=== PATIENT | female | born 1930 | race Caucasian/White ===

== ENCOUNTER → 2016-05-28 | Outpatient (CLI) | payer OTHER, BC ==
[~2016-05-28] MED LIST: ALBUTEROL2.5 MG/0.5 INH; ALENDRONATE SOD70 MG PO; ASPIR 8181 MG PO; AUGMENTIN 875875 MG PO; CELEBREX 200 M200 MG; CELEXA40 MG; CIPROFLOXACIN500 M1 PO; COUMADIN PO; DELTASONE20 MG PO; DEMADEX20 MG PO; DETROL LA4 MG PO; EFFEXOR37.5 MG PO; FENTANYL PA25 MCG/HR; FLUCONAZOLE 10100 MG PO; FUROSEMIDE 40 M40 M1 PO; GLIPIZIDE 10 MG10 MG PO; GLUCOTROL10 MG PO; GLUMETZA500 PO; HYDROCODON-ACE1 EAC1; IRON325 PO; KEFLEX500 MG PO; LISINOPRIL20 MG PO; METOPROLOL SUCC50 MG PO; NEURONTIN 300M300 M2 PO; NORVASC 5 MG TAB5 MG PO; POTASSIUM20 PO; PRADAXA150 MG PO; PRAVACHOL20 MG PO; PROTONIX40 M1 PO; SEROQUEL 25 MG25 M1 PO; SPIRIVA INH; TAMIFLU75 MG PO; TOPROL XL50 MG PO; TRAMADOL HCL E100 MG PO; ULTRAM 50MG TAB50 MG PO; VITAMINC500 PO
--- NOTE | ~2016-05-28 | SLE ---
[facility] [place] [address] POLYSOMNOGRAPHY STUDY Name: ARIADNA UGALDE Room #: REG DAYANA MOscarHuber.#: [id number] Admission: 05/28/16 Attend Phys: Marcia Delgado MD Discharge: Date of : 34 Report #: [id number] THIS REPORT FOR: //name// CC: Marcia Molina MD The patient with history of obstructive sleep apnea, on CPAP, has been on this for 12 years, machine is failing, however. COMMENTS: Baseline portion: Total sleep time 181 minutes, sleep efficiency 76%. RESPIRATORY SUMMARY: Central apnea 3, obstructive apnea 6, hypopnea 165. Apnea-hypopnea index of 58 events per sleep hour. Left lateral 69, right lateral 44 events per sleep hour. Minimal supine sleep noted. Periodic limb movement with arousal index 6 events per sleep hour. Low oxygen saturation 81%, spending 20% of recording time less than 90%. CPAP TITRATION: Titrated at 5, 7, 9, 11 and 12 cm water pressure. She uses a Respironics Comfort Blue Gel Mask at home, however, a Respironics Bambi View small mask was used during the study. At 12 cm water pressure, the patient was seen for 100 minutes of which 20 minutes was in REM sleep. There were 29 central apneas, 25 hypopneas, apnea-hypopnea index was 34 events per sleep hour, low sat of 83%. IMPRESSION: 1. Obstructive sleep apnea/hypopnea, G47.33. 2. Complex sleep apnea with increase in central events with titration. 3. Premature ventricular contractions noted. 4. A definite CPAP setting was not established. SUGGESTIONS: 1. In addition to specific therapy, the patient should be cautioned regarding driving or operating dangerous machinery unless fully alert. The patient should be cautioned regarding the use of respiratory depressants. 2. Oral appliance or appropriate surgery may be considered with appropriate followup. 3. Usual sleep apnea suggestions recommended. 4. An auto titrating CPAP between 8 and 14 cm water pressure is initially recommended. During our study, a Respironics Bambi View small mask was used with heated humidity. 5. If signs and symptoms not improved with therapy, further evaluation is recommended. Please do not hesitate to contact me if I may be of further assistance. <ELECTRONICALLY SIGNED> By: Marcia Delgado MD 05/30/16 184 17 37 Marcia Delgado MD /nt
== END ==
LOC: SLEEPLAB 16:05
DX: G47.33 Obstructive sleep apnea (adult) (pediatric) (principal)

== ENCOUNTER → 2016-06-03 | Outpatient (CLI) | payer OTHER, BC ==
--- NOTE | ~2016-06-03 | CNG ---
[facility] [place] [address] CYTO-NONGYN REPORT PROCEDURE Name: TRAMYOLANDA Room #: REG DAYANA Canseco#: [id number] Admission: 06/03/16 Date of : 32 Discharge: Report #: [id number] Path Case #: [id number] CYTOPATHOLOGY REPORT COLLECTION DATE: 06/03/2016 RECEIVED DATE: 06/03/2016 SUBMITTING PHYS: Dr. Marcia Delgado OTHER PHYS: Dr. Shasta Molina CLINICAL HISTORY: Pleural effusion. SPECIMEN(S) RECEIVED: A.Pleural fluid * * * * * * * * * * * * FINAL DIAGNOSIS: A. Pleural fluid: - No malignant cells identified. Reactive mesothelial cells and chronic inflammatory cells are identified. PATHOLOGIST: Jennifer Bond M.D. REPORT ELECTRONICALLY SIGNED BY: Jennifer Bond M.D. DATE/TIME: 06/06/2016 15:04 * * * * * * * * * * * * GROSS PATHOLOGY: A. Pleural fluid: The specimen is submitted unfixed, labeled "Yolanda Anderson". Received by the Cytology Department is 15 mL of clear luis miguel fluid. One ThinPrep slide and a cell block were prepared. (clt 06.03.2016) [employer]PER[employer]OR [employer]): XOCHITL Kelly([facility]) INITIAL CPT CODE(S): A; 78137, 72791 Professional services performed by [facility] at [facility] [address] , [place] [address] Technical services performed by [facility] at [address] [place] [address]., [address], [place] [address]. [facility] [address] [place] [address], [facility] [address] [place] [address] PHONE: [phone] [facility] [address] [place] [address] CYTO-NONGYN REPORT PROCEDURE Name: YOLANDA ANDERSON Room #: REG DAYANA Ochoa.#: [id number] Admission: 06/03/16 Date of : 32 Discharge: Report #: [id number] Path Case #: [id number] DIRECTOR: Bud Eaton M.D. * * * END OF REPORT * * *
[2016-06-03 12:39] LABS: HEMATOCRIT 43.3 % (37.0-47.0); HEMOGLOBIN 14.6 gm/dL (12.0-15.0); MCH 32.1 pg (26.0-34.0); MCHC 33.6 % (28.0-37.0); MCV 95.4 fL (80.0-100.0); RBC 4.54 mil/uL (4.20-5.00); RDW 15.5 % (10.5-14.5); WBC 6.6 thou/uL (4.0-11.0)
[2016-06-03 12:53] LABS: CALCIUM 10.4 mg/dL (8.5-10.1); CREATININE 0.6 mg/dL (0.6-1.3); POTASSIUM 4.2 mmol/L (3.5-5.1)
[2016-06-03 13:02] LABS: INR 1.1; PROTIME 11.4 Seconds (9.3-11.4)
[2016-06-03 16:17] LABS: TOTAL VOLUME 60
[2016-06-04 14:07] LABS: BF LINING CELLS 15 % (Not Estab.); BF MACROPHAGE 4 % (Not Estab.); BF NEUTROPHILS 4 % (0-24); BF NUCLEATED CELLS 175 /mm3 (0-499); BF RBC 3000 /uL (Not Estab.); CLARITY CLOUDY (Clear); COLOR YL (())
[2016-06-04 19:08] LABS: BODY FLUID ALBUMIN 1.6 g/dL (()); BODY FLUID AMYLASE 21 U/L (()); BODY FLUID GLUCOSE 60 mg/dL (()); BODY FLUID LDH 114 IU/L (()); BODY FLUID PROTEIN 2.4 g/dL (())
== END ==
LOC: ULTRA 11:58
PROVIDERS: Internal Medicine Pulmonary Disease
DX: J90 Pleural effusion, not elsewhere classified (principal); E11.9 Type 2 diabetes mellitus without complications; N39.0 Urinary tract infection, site not specified; E16.2 Hypoglycemia, unspecified

== ENCOUNTER 2016-06-04 13:22 | Emergency (ER) | payer OTHER, BC ==
[~2016-06-04] VITALS: Ht 167.6 cm; Wt 63.5 kg
[~2016-06-04 13:22] MED LIST changes: -ALBUTEROL2.5 MG/0.5 INH; -ALENDRONATE SOD70 MG PO; -ASPIR 8181 MG PO; -AUGMENTIN 875875 MG PO; -DELTASONE20 MG PO; -DEMADEX20 MG PO; -FLUCONAZOLE 10100 MG PO; -GLIPIZIDE 10 MG10 MG PO; -KEFLEX500 MG PO; -METOPROLOL SUCC50 MG PO; -PRAVACHOL20 MG PO; -PROTONIX40 M1 PO; -SEROQUEL 25 MG25 M1 PO; -TAMIFLU75 MG PO; -TRAMADOL HCL E100 MG PO; -VITAMINC500 PO
[2016-06-04] MEDS ORDERED: DEMADEX20 MG PO (16:46)
[2016-06-04] MEDS ORDERED: FLUCONAZOLE 10100 MG PO (16:47)
[2016-06-04] MEDS ORDERED: PRAVACHOL20 MG PO (16:48)
[2016-06-04] MEDS ORDERED: ALENDRONATE SOD70 MG PO (16:48)
[2016-06-04 17:26] VITALS: BP 107/40
[2016-07-17] MEDS ORDERED: PROTONIX40 M1 PO (10:15)
[2016-07-17] MEDS ORDERED: TAMIFLU75 MG PO (10:17)
[2016-07-25] MEDS ORDERED: SEROQUEL 25 MG25 M1 PO (12:36)
== END 2016-06-04 17:27 | disposition home or self-care (01) ==
LOC: ER 13:22
DX: E11.649 Type 2 diabetes mellitus with hypoglycemia without coma (principal); Z79.84 Long term (current) use of oral hypoglycemic drugs; I10 Essential (primary) hypertension; F32.9 Major depressive disorder, single episode, unspecified; Z95.2 Presence of prosthetic heart valve; Z95.0 Presence of cardiac pacemaker; J44.9 Chronic obstructive pulmonary disease, unspecified; Z98.42 Cataract extraction status, left eye; Z98.41 Cataract extraction status, right eye; Z98.890 Other specified postprocedural states; Z88.8 Allergy status to other drugs, medicaments and biological substances; F17.210 Nicotine dependence, cigarettes, uncomplicated

== ENCOUNTER 2016-06-05 11:08 | Inpatient (IN) | payer OTHER, BC ==
[~2016-06-05] VITALS: Ht 167.6 cm; Wt 68.0 kg
--- NOTE | ~2016-06-05 | HC ---
[facility] [address] [place] [address] CONSULTATION Name: ARIADNA UGALDE Room #: 426-P ADM IN M.R.#: [id number] Admission: 06/07/16 Attend Phys: Viraj Angulo MD Discharge: Date of : 32 Report #: [id number] THIS REPORT FOR: //name// CC: Juan R Molina PRIMARY CARE PHYSICIAN: Shasta Molina M.D. REFERRAL PHYSICIAN: Juan R Hester M.D. REASON FOR REFERRAL: Pulmonary followup. HISTORY OF PRESENT ILLNESS: The patient is an 85-year-old white female who was admitted with recurrent hypoglycemia. She has a history of sleep apnea, COPD. A pulmonary consultation was requested for followup management. The patient has known sleep apnea. The patient has recently undergone a sleep study. A new CPAP machine was ordered according to the family. She is followed by Dr. Delgado. She also has a history of COPD along with lung cancer. Last Meir, she underwent thoracentesis. The results of these are still pending. From a lung standpoint, she is doing fairly well. She is yet to receive a CPAP and will use oral BiPAP for now until a CPAP device is available. In terms of her hypoglycemia, this is better. That may be related to oral hypoglycemic agents. Otherwise, the patient denies any chest pain, dyspnea or productive cough, night sweats or chills. PAST MEDICAL HISTORY: Sleep apnea, COPD, adenocarcinoma of the lung, pleural effusion status post recent thoracentesis, diabetes mellitus, bioprosthetic aortic valve replacement, gastroesophageal reflux disease, hypertension, status post permanent pacemaker placement, atrial fibrillation. ALLERGIES: CARDIZEM, which causes hives. HOME MEDICATIONS: Lists are reviewed. For COPD, she is on Spiriva, albuterol. FAMILY HISTORY: Notable for heart disease in the father. Mother at the age of 99. SOCIAL HISTORY: She has smoked about 50 pack years, quit in 2012. She currently resides at an independently living. She is . She has 3 children. [facility] [address] [place] [address] CONSULTATION Name: ARIADNA UGALDE Room #: 426-P [facility] IN M.R.#: [id number] Admission: 06/07/16 Attend Phys: Viraj Angulo MD Discharge: Date of : 32 Report #: [id number] REVIEW OF SYSTEMS: As mentioned above, otherwise 10-point system review negative. PHYSICAL EXAMINATION: GENERAL: She is awake, alert, in no apparent distress. VITAL SIGNS: Temperature is 98 degrees Fahrenheit, pulse is 76, respiratory rate is 22, blood pressure is 150/88 mmHg, saturation 95% on room air. HEENT: Normocephalic, atraumatic. NECK: Supple, without any lymphadenopathy or thyromegaly. CHEST: Breath sounds are good without any rales or wheezes. CARDIOVASCULAR: Irregularly irregular. No murmurs or gallop. ABDOMEN: Soft, nontender, no organomegaly or masses felt. GENITOURINARY: Deferred. RECTAL: Deferred. EXTREMITIES: There is no edema, cyanosis or clubbing. LABORATORY DATA: Chest x-ray shows cardiomegaly, mild interstitial infiltrates seen in the right upper lobe, increased gastric air. Recent thoracentesis yield approximately 1200 mL of clear yellowish fluid. Cytology is negative for malignant cells. A 2D echocardiogram showed normal ejection fraction, ____ function normal, right ventricle was dilated, right atrium is dilated, left atrium is dilated, a bioprosthetic aortic valve is noted. Mitral valve is mildly calcified, suggestive of jhka-bm-ytlloijy stenosis, xhapmtpj-pz-cpdjum regurgitation, pulmonary artery pressure measured 46 mmHg, pleural fluid laboratory suggests transudate. Electrolytes unremarkable. WBC 7300, hemoglobin is 12.4. IMPRESSION: 1. FIORDALIZA. She recently underwent a split night study. A new CPAP machine has been ordered. For now, I would recommend autotitrating BiPAP while in the hospital until she gets a new CPAP machine. 2. Chronic obstructive pulmonary disease, clinically compensated. 3. Remote history of tobacco use, quit in 2014. 4. Lung cancer. 5. Pleural effusion, status post thoracentesis, cytology negative. 6. Should be episodic hypoglycemia with a history of diabetes mellitus, defer management to primary care team. RECOMMENDATION: The patient is doing well from a pulmonary standpoint. We will continue bronchodilator therapy. All the titrating BiPAP as mentioned above. She will follow with Dr. Delgado. [address] [address] CONSULTATION Name: ARIADNA UGALDE Room #: 426-P ADM IN M.R.#: [id number] Admission: 06/07/16 Attend Phys: Viraj Angulo MD Discharge: Date of : 32 Report #: [id number] Thank you for this consultation. <ELECTRONICALLY SIGNED> By: Naren Lynch MD 06/07/16 1611 1655 0008 Naren Lynch MD /nt
--- NOTE | ~2016-06-05 | 2DMMODE ---
[facility] [place] [address] 2 D/M-MODE ECHOCARDIOGRAM Name: ARIDANA UGALDE Room #: 426-P [facility] IN M.R.#: [id number] Admission: 06/05/16 Attend Phys: Juan R Hester Discharge: Date of : 32 Date of Service: 06/06/16 1230 Report #: [id number] THIS REPORT FOR: //name// Transthoracic Echocardiography Ordering physician: Juan R Hester Stephanie B. Chitaia, Nikoloz physician: Dominick Pipe Production Worker: IRENE Meraz Indications/History: Atrial fibrillation, PPM, AVR. BP: 150 / HR: 75bpm Height: 66in Weight: 149.7lb 88 Study data: M-mode, complete 2D, complete spectral Doppler, and color Doppler. Location: Bedside. Routine. Image quality was adequate. 2D measurements Normal Normal LVID ED 49.7mm 36-57 IVS ED 10.4mm 6-11 LVID ES 33.1mm 23-40 LVPW ED 9.4mm 6-11 LA volume 168ml/m2 16-28 AoRoot diam 24.1mm 21-37 index ED LVOT diameter 18-23 Findings: Left ventricle: The cavity size was normal. Wall thickness was normal. Systolic function was normal. The estimated ejection fraction was in the range of 60% to 65%. Wall motion was normal. Right ventricle: The cavity size was dilated. Systolic function was normal. Right atrium: The atrium was dilated. Left atrium: The atrium was dilated. Volume index: 168ml/m2 (S). Aortic valve: A bioprosthesis was present. Doppler: There was no stenosis. No regurgitation. Peak velocity: 194.7cm/s (S). Valve area: 1.2cm2(VTI). Mean [facility] [address] [place] [address] 2 D/M-MODE ECHOCARDIOGRAM Name: LOVE,ARIADNA Room #: 426-P ADM IN Gabriela.#: [id number] Admission: 06/05/16 Attend Phys: Juan R Hester Discharge: Date of : 32 Date of Service: 06/06/16 1230 Report #: [id number] gradient: 8.5mm Hg (S). Peak gradient: 15.2mm Hg (S). Mitral valve: Moderately calcified annulus with focal echodensity noted clinical correlation suggested . Mildly thickened, mildly calcified leaflets . Doppler: The findings are consistent with mild to moderate stenosis. Moderate to severe regurgitation. Mean gradient: 7.5mm Hg (D). Tricuspid valve: Structurally normal valve. Doppler: There was no evidence for stenosis. Moderate-severe regurgitation. Regurgitant peak velocity: 279.5cm/s. Peak RV-RA gradient: 31mm Hg (S). Pulmonic valve: Structurally normal valve. Doppler: There was no evidence for stenosis. Mild regurgitation. Pericardium: There was no pericardial effusion. Aorta: Aortic root: The aortic root was normal in size. Pulmonary artery: Systolic pressure was estimated to be 46mm Hg. Diastolic function: The study is not technically sufficient to allow evaluation of LV diastolic function. Systemic veins: Inferior vena cava: The vessel was dilated; respirophasic changes in dimension were absent. Conclusions 1. Left ventricle: The cavity size was normal. Wall thickness was normal. Systolic function was normal. The estimated ejection fraction was in the range of 60% to 65%. Wall motion was normal. 2. Right ventricle: The cavity size was dilated. 3. Right atrium: The atrium was dilated. 4. Left atrium: The atrium was dilated. 5. Aortic valve: A bioprosthesis was present. 6. Mitral valve: Moderately calcified annulus with focal echodensity noted clinical correlation suggested . Mildly thickened, mildly calcified leaflets . The findings are consistent with mild to moderate stenosis. Moderate to severe regurgitation. 7. Pulmonic valve: Mild regurgitation. 8. Tricuspid valve: Moderate-severe regurgitation. 9. Pulmonary arteries: Systolic pressure was estimated to be 46mm Hg. [facility] [place] [address] [place] [address] 2 D/M-MODE ECHOCARDIOGRAM Name: ARIADNA UGALDE Room #: 426-P ADM IN M.R.#: [id number] Admission: 06/05/16 Attend Phys: Juan R Hester Discharge: Date of : 32 Date of Service: 06/06/16 1230 Report #: [id number] 10. Inferior vena cava: The vessel was dilated; respirophasic changes in dimension were absent. <ELECTRONICALLY SIGNED> By: Alexander Horne MD 06/06/16 1325 1230 24 Alexander Horne MD /camila
--- NOTE | ~2016-06-05 | H ---
[facility] [place] [address] [place] [address] HISTORY AND PHYSICAL Name: ARIADNA UGALDE Room #: 426-P ADM IN M.R.#: [id number] Admission: 06/07/16 Attend Phys: Viraj Angulo MD Discharge: Date of : 32 Report #: [id number] THIS REPORT FOR: //name// CC: Juan R Molina DATE OF ADMISSION: 06/05/2016 CHIEF COMPLAINT: Hypoglycemia. HISTORY OF PRESENT ILLNESS: The patient is an 85-year-old female who lives at the [facility] living. The patient has had falls during the last few days. Paramedics brought the patient to the Emergency Room a couple of days ago for hypoglycemia. She states that she takes glipizide, which she stopped taking couple of days ago. Yesterday, she had another hypoglycemic episode, which was again treated in the Emergency Room. She developed hypoglycemia this morning, with blood sugar in the mid 30s. The patient called primary care physician, who recommended the patient to come to the Emergency Room. The patient's lowest blood sugar today was 39. As noted, she has had falls lately. The patient hit her head, but she denies pain, and she has no neurologic deficits. In the Emergency Room, the patient was found to have urinary tract infection. She already received a dose of Rocephin. Currently, the patient feels well. She denies chest pains, shortness of breath, heart palpitations, dizziness, weakness, or other symptoms. PAST MEDICAL HISTORY: 1. Diabetes mellitus type 2. 2. History of porcine valve, details not specified. 3. Status post pacemaker placement. 4. History of paroxysmal atrial fibrillation. 5. Hypertension. 6. Chronic obstructive pulmonary disease. 7. Tobacco abuse, quit about a month ago. 8. Depression. 9. Status post right BKA, secondary to infected arthroplasty. 10. History of lung cancer. CURRENT MEDICATIONS: Amlodipine 5 mg a day, alendronate 70 mg a day, Pradaxa 150 mg b.i.d., iron sulfate 325 mg a day, fluconazole 100 mg a day, gabapentin 300 mg b.i.d., glipizide 10 mg a day, lisinopril 20 mg a day, metformin 500 mg b.i.d., Pravachol 20 mg a day, Spiriva inhaler a day, torsemide 20 mg a day, tramadol 50 mg 3 times a day as needed, and Effexor 37.5 mg a day. [address] [address] HISTORY AND PHYSICAL Name: ARIADNA UGALDE Room #: 426-P [facility] IN .R.#: [id number] Admission: 06/07/16 Attend Phys: Viraj Angulo MD Discharge: Date of : 32 Report #: [id number] FAMILY HISTORY: Reviewed and not pertinent to the patient's current condition. SOCIAL HISTORY: As noted, the patient lives by herself. She quit smoking cigarettes about a month ago. She does not drink alcohol. REVIEW OF SYSTEMS: As above in HPI section, all others negative. PHYSICAL EXAMINATION: GENERAL: The patient is an elderly female who is in no apparent distress. VITAL SIGNS: Blood pressure is 118/76, heart rate is 77, aspiration is between 16 and 22, temperature is 97.8. HEENT: Pupils are equal. Eye movements are normal. Sclerae are anicteric. NECK: Supple. Thyromegaly is not palpated. The patient has no JVD. RESPITATORY: Chest moves symmetrically with voiding. Respiratory sounds are normal. CARDIOVASCULAR: The patient has distant S1 and S2. I could not appreciate murmurs, gallops or rubs. GASTROINTESTINAL: Soft, nondistended, and nontender. Bowel sounds are present. The patient has no hepatomegaly or splenomegaly. MUSCULOSKELETAL: There is no edema, cyanosis or clubbing. The patient is status post right AKA. NEUROLOGIC: The patient is alert and oriented x 3.: Her examination is nonfocal. LABORATORY DATA: Basic metabolic profile shows slightly high potassium at 5.5. The creatinine is normal. Glucose currently is 129. AST is slightly high at 39. Liver function tests are otherwise normal. CBC with differential is unremarkable. Urinalysis is consistent with UTI. Chest x-ray shows cardiomegaly, without acute findings. ASSESSMENT AND PLAN: 1. Severe hypoglycemic episode as detailed above. Glipizide is discontinued a couple of days ago. The patient will be monitored closely. We will use sliding scale insulin based on low dose algorythm. Her glucose level is greater than 150. We are checking TSH and hemoglobin A1c. 2. Urinary tract infection. Urine is submitted for culture. Rocephin will be continued for now. 3. Status post fall, closed head injury. We are ordering CT scan of the head, although the patient has no neurologic deficits. 4. Cardiomegaly on chest x-ray, and recent shortness of breath, worsening. We will obtain echo for further evaluation. The patient recently had right-sided pleural effusion and thoracentesis few days ago. This is being worked up as an outpatient by patient's metal bed assembler. [address] [address] HISTORY AND PHYSICAL Name: ARIADNA UGALDE Room #: 426-P ADM IN M.R.#: [id number] Admission: 06/07/16 Attend Phys: Viraj Angulo MD Discharge: Date of : 32 Report #: [id number] 5. DVT prophylaxis. Unnecessary, the patient is on Pradaxa for paroxysmal atrial fibrillation. <ELECTRONICALLY SIGNED> By: Juan R Hester MD 06/08/16 2032 1439 1640 Juan R Hester MD /nt
[~2016-06-05 11:08] MED LIST changes: +ALENDRONATE SOD70 MG PO; +DEMADEX20 MG PO; +FLUCONAZOLE 10100 MG PO; +PRAVACHOL20 MG PO
[2016-06-05 11:09] VITALS: BP 134/40
[2016-06-05 11:28] LABS: HEMATOCRIT 38.5 % (37.0-47.0); HEMOGLOBIN 12.9 gm/dL (12.0-15.0); MCHC 33.5 % (28.0-37.0); MCV 95.5 fL (80.0-100.0); PLATELET COUNT 229 thou/uL (150-400); RBC 4.04 mil/uL (4.20-5.00); RDW 14.9 % (10.5-14.5); WBC 9.5 thou/uL (4.0-11.0)
[2016-06-05 11:29] LABS: MANUAL DIFF YES
[2016-06-05 11:41] LABS: URINE BILIRUBIN NEGATIVE (Negative); URINE BLOOD NEGATIVE (Negative); URINE COLOR YELLOW; URINE GLUCOSE-RANDOM* NEGATIVE (Negative); URINE KETONES TRACE (Negative); URINE LEUKOCYTES-REFLEX 1+ (Negative); URINE PROTEIN (DIPSTICK) 1+ (Negative); URINE SPECIFIC GRAVITY >= 1.030 (1.003-1.035)
[2016-06-05 11:43] LABS: ABSOLUTE NEUTROPHILS 8.3 thou/uL (1.4-8.2); TOTAL CELL COUNT 100
[2016-06-05 11:44] LABS: CALCIUM 10.1 mg/dL (8.5-10.1); POIKILOCYTOSIS SLIGHT; POTASSIUM 5.5 mmol/L (3.5-5.1)
[2016-06-05 11:48] LABS: CASTS None Seen /LPF (None Seen); SQUAMOUS 0-3 Few /LPF (0-3); URINE RBC None Seen /HPF (0-2); URINE WBC-REFLEX 0-5 Rare /HPF (0-5)
[2016-06-05 11:49] LABS: AMORPHOUS URATES Few /LPF (None Seen)
[2016-06-05 13:45] VITALS: BP 118/76
[2016-06-05 14:00] VITALS: BP 105/76
[2016-06-05 16:05] VITALS: BP 128/94
[2016-06-05 20:00] VITALS: BP 123/59
[2016-06-06 04:00] VITALS: BP 118/57
[2016-06-06 05:44] LABS: HEMATOCRIT 36.7 % (37.0-47.0); HEMOGLOBIN 12.4 gm/dL (12.0-15.0); MCH 31.9 pg (26.0-34.0); MCHC 33.8 % (28.0-37.0); MCV 94.4 fL (80.0-100.0); PLATELET COUNT 211 thou/uL (150-400); RBC 3.89 mil/uL (4.20-5.00); RDW 15.2 % (10.5-14.5); WBC 7.3 thou/uL (4.0-11.0)
[2016-06-06 05:46] LABS: MANUAL DIFF YES
[2016-06-06 05:51] LABS: CALCIUM 10.1 mg/dL (8.5-10.1); CREATININE 0.7 mg/dL (0.6-1.3)
[2016-06-06 05:53] LABS: POTASSIUM 4.5 mmol/L (3.5-5.1)
[2016-06-06 07:43] VITALS: BP 150/88
[2016-06-06 07:44] LABS: ANISOCYTOSIS 1+; OVALOCYTES 1+; TOTAL CELL COUNT 100
[2016-06-06 15:28] VITALS: BP 91/42
[2016-06-06 19:30] VITALS: BP 138/53
[2016-06-07 04:30] VITALS: BP 125/57
[2016-06-07 06:33] LABS: ABSOLUTE NEUTROPHILS 4.6 thou/uL (1.4-8.2); BASOPHILS 0.7 % (0.0-2.0); EOSINOPHILS 1.8 % (0.0-3.0); HEMATOCRIT 38.1 % (37.0-47.0); HEMOGLOBIN 12.8 gm/dL (12.0-15.0); LYMPHOCYTES 11.6 % (24.0-44.0); MCHC 33.6 % (28.0-37.0); MCV 95.3 fL (80.0-100.0); MONOCYTES 8.3 % (1.0-8.0); PLATELET COUNT 218 thou/uL (150-400); POLYS 77.6 % (36.0-66.0); RDW 15.2 % (10.5-14.5); WBC 5.9 thou/uL (4.0-11.0)
[2016-06-07 06:36] LABS: MANUAL DIFF NO
[2016-06-07 06:52] LABS: CALCIUM 10.4 mg/dL (8.5-10.1); CREATININE 0.7 mg/dL (0.6-1.3); POTASSIUM 4.5 mmol/L (3.5-5.1)
[2016-06-07 08:38] VITALS: BP 155/66
[2016-06-07 15:37] VITALS: BP 158/59
[2016-06-07 20:00] VITALS: BP 97/59
[2016-06-08 04:30] VITALS: BP 127/53
[2016-06-08 07:59] VITALS: BP 150/57
[2016-06-08 17:47] VITALS: BP 140/55
[2016-06-08 19:53] VITALS: BP 120/54
[2016-06-09 03:40] VITALS: BP 126/56
[2016-06-09 08:46] VITALS: BP 123/71
[2016-06-09 16:08] VITALS: BP 130/43
[2016-06-09 21:20] VITALS: BP 132/43
[2016-06-10 04:40] LABS: ABSOLUTE NEUTROPHILS 4.4 thou/uL (1.4-8.2); BASOPHILS 1.3 % (0.0-2.0); EOSINOPHILS 2.2 % (0.0-3.0); HEMATOCRIT 36.8 % (37.0-47.0); HEMOGLOBIN 12.4 gm/dL (12.0-15.0); LYMPHOCYTES 13.4 % (24.0-44.0); MCH 31.9 pg (26.0-34.0); MCHC 33.7 % (28.0-37.0); MCV 94.6 fL (80.0-100.0); MONOCYTES 10.5 % (1.0-8.0); PLATELET COUNT 211 thou/uL (150-400); POLYS 72.6 % (36.0-66.0); RBC 3.89 mil/uL (4.20-5.00); RDW 14.4 % (10.5-14.5); WBC 6.1 thou/uL (4.0-11.0)
[2016-06-10 04:49] LABS: MANUAL DIFF NO
[2016-06-10 04:58] LABS: CALCIUM 9.6 mg/dL (8.5-10.1); CREATININE 0.7 mg/dL (0.6-1.3); POTASSIUM 4.2 mmol/L (3.5-5.1)
[2016-06-10 05:50] VITALS: BP 125/48
[2016-06-10 08:03] VITALS: BP 142/58
[2016-06-10] MEDS ORDERED: KEFLEX500 MG PO (13:49)
[2016-06-10] MEDS ORDERED: GLUCOTROL10 MG PO (13:52)
[2016-06-10] MEDS ORDERED: ALBUTEROL2.5 MG/0.5 INH (13:52)
[2016-07-17] MEDS ORDERED: PROTONIX40 M1 PO (10:15)
[2016-07-17] MEDS ORDERED: TAMIFLU75 MG PO (10:17)
[2016-07-25] MEDS ORDERED: SEROQUEL 25 MG25 M1 PO (12:36)
== END 2016-06-10 17:10 | DRG 872 ==
LOC: ER 11:08 → EROBS 12:45 → 4E 14:06
PROVIDERS: Emergency Medicine; Internal Medicine; Internal Medicine Endocrinology, Diabetes & Metabolism
DX: A41.9 Sepsis, unspecified organism (principal); N39.0 Urinary tract infection, site not specified; J90 Pleural effusion, not elsewhere classified; C34.90 Malignant neoplasm of unspecified part of unspecified bronchus or lung; E11.649 Type 2 diabetes mellitus with hypoglycemia without coma; K21.9 Gastro-esophageal reflux disease without esophagitis; J44.9 Chronic obstructive pulmonary disease, unspecified; G47.33 Obstructive sleep apnea (adult) (pediatric); I48.0 Paroxysmal atrial fibrillation; B96.20 Unspecified Escherichia coli [E. coli] as the cause of diseases classified elsewhere; I10 Essential (primary) hypertension; F32.9 Major depressive disorder, single episode, unspecified; Z96.651 Presence of right artificial knee joint; Z88.8 Allergy status to other drugs, medicaments and biological substances; Z98.49 Cataract extraction status, unspecified eye; Z79.899 Other long term (current) drug therapy; Z95.2 Presence of prosthetic heart valve; Z95.0 Presence of cardiac pacemaker; Z82.49 Family history of ischemic heart disease and other diseases of the circulatory system; Z87.891 Personal history of nicotine dependence; Z91.81 History of falling

== ENCOUNTER 2016-08-01 16:14 | Inpatient (IN) | payer OTHER, BC ==
[~2016-08-01] VITALS: Ht 172.7 cm; Wt 72.6 kg
--- NOTE | ~2016-08-01 | EEG ---
[facility] [place] [address] [place] [address] ELECTROENCEPHALOGRAM Name: ARIADNA UGALDE Room #: 451-P ADM IN M.R.#: [id number] Admission: 08/01/16 Attend Phys: Kevin Vasquez DO Discharge: Date of : 32 Report #: [id number] THIS REPORT FOR: //name// CC: Kevin Vasquez Veronica Sabih DATE OF SERVICE: 08/03/2016 This patient is being evaluated for altered mental status. EEG was done by placing the electrodes by standard 10-20 system of electrode placement. Both referential and sequential montages were used for recording. Background activity in this patient's EEG is only about 5-6 Hz and 25 microvolt. The patient is sedated. Photic stimulation is unremarkable. IMPRESSION: This is an abnormal EEG because it is very disorganized and poorly formed. That is a nonspecific abnormality, which can occur with encephalopathy, effect of psychotropic medication, dementia, etc. Clinical correlation is recommended. Thank you very much for this referral. <ELECTRONICALLY SIGNED> By: Naseem Capone MD 08/05/16 1933 0848 Naseem Capone MD /nt
--- NOTE | ~2016-08-01 | HC ---
[facility] [place] [address] [place] [address] CONSULTATION Name: ARIADNA UGALDE Room #: 451-P ADM IN M.R.#: [id number] Admission: 08/01/16 Attend Phys: Kevin Vasquez DO Discharge: Date of : 32 Report #: [id number] THIS REPORT FOR: //name// CC: Kevin Montes De Oca HISTORY OF PRESENT ILLNESS: The patient is an 85-year-old woman with a recent prolonged hospitalization following a nonsyncopal fall with hip fracture in the leg that had been previously amputated. Nonsurgical therapy was recommended. She has a history of remote bioprosthetic aortic valve replacement, chronic diastolic heart failure related to significant mitral insufficiency, COPD, and recurrent anemia. She now presents with behavioral changes. She was admitted on telemetry and had a several seconds of a wide complexes tachycardia at 3:30 a.m., this was a clinically asymptomatic rhythm disturbance. I was asked to see her in this regard. She is currently awake and arousable, although disoriented, a sitter is in her room. No recent history of chest heaviness or pressure. No history of near syncope or syncope. ALLERGIES: To DILTIAZEM. MEDICATIONS: Her medicines include pravastatin 20 mg daily, lisinopril 20 mg daily, iron 3 times a day, metformin 500 mg twice daily, Pradaxa 150 mg twice daily, amlodipine 5 mg twice daily, Detrol LA, torsemide 10 mg daily, Protonix 40 mg twice daily, glipizide 10 mg daily, and tramadol. PAST MEDICAL HISTORY: Medical records have been reviewed and include history of prior biventricular pacer, aortic valve replacement, hypertension, right frdbg-guw-psdr amputation, sleep apnea, permanent atrial fibrillation, pelvis fracture in April 2011, diabetes. An echocardiogram in late May of this year demonstrated normal ejection fraction, aortic bioprosthesis that was functioning normally, klnl-zs-uzsynmbl mitral stenosis and qzndzhii-zk-wahapt mitral insufficiency. No history of coronary artery disease. At the time of her aortic valve replacement in 2008, she underwent [place] ablation. SOCIAL HISTORY: Former smoker. 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 FAMILY HISTORY: Noncontributory. REVIEW OF SYSTEMS: All systems negative except as that noted above. PHYSICAL EXAMINATION: GENERAL: Reveals a pleasant elderly woman who is alert and arousable, although disoriented. VITAL SIGNS: Blood pressure is 140/50, heart rate is 77 and regular, she is afebrile, 5 feet 8 inches tall, and 160 pounds. HEENT: There are neither xanthelasma, subcutaneous xanthomata, oral mucosal or digital cyanosis, or kyphoscoliosis present. [facility] [address] [place] [address] CONSULTATION Name: ARIADNA UGALDE Room #: 451-P ADM IN M.R.#: [id number] Admission: 08/01/16 Attend Phys: Kevin Vasquez DO Discharge: Date of : 32 Report #: [id number] CHEST: Reveals diminished breath sounds at both bases, scattered wheezing. CARDIAC: Reveals a regular rate and rhythm with normal S1 and paradoxically split second heart sound. ABDOMEN: Soft and nontender. EXTREMITIES: Without edema, hccya-dam-wqxd amputation is noted. EKG, ventricular pacing. LABORATORY DATA: Sodium 142, potassium 4.8, creatinine 0.9. White count 10.1, hemoglobin 9.6, hematocrit 30, and platelet count 258. IMPRESSION: 1. Wide complex tachycardia, nonsustained and asymptomatic. 2. Recent nonsyncopal fall with hip fracture. 3. Permanent atrial fibrillation with prior pacemaker. 4. Chronic diastolic heart failure; significant mitral valve disease. 5. Remote aortic bioprosthetic valve replacement. 6. Diabetes. 7. Chronic obstructive pulmonary disease. 8. Anemia. 9. Hypercoagulable condition. RECOMMENDATIONS: 1. Gentle diuretic therapy. 2. Interrogate pacemaker for hopefully identification of whether this was a ventricular or supraventricular rhythm. 3. Resumption of beta blockade in the absence of sustained tachycardia or symptoms. Conservative approach was recommended. <ELECTRONICALLY SIGNED> By: Anthony Leung MD, FACC 08/03/16 0939 0903 1353 Anthony Leung MD, FACC /nt
--- NOTE | ~2016-08-01 | HC ---
[facility] [place] [address] CONSULTATION Name: ARIADNA UGALDE Room #: 451-P ADM IN M.R.#: [id number] Admission: 08/01/16 Attend Phys: Kevin Vasquez DO Discharge: Date of : 32 Report #: [id number] THIS REPORT FOR: //name// CC: Kevin Vasquez Veronica Sabih DATE OF SERVICE: 08/03/2016 IDENTIFICATION: Psychiatric consultation is requested for confusion. HISTORY OF PRESENT ILLNESS: The patient is an 85-year-old retired female with no reported underlying past psychiatric history of depression, israel, psychosis or substance abuse. She does have a history of numerous micro infarcts, raising concern for possible underlying vascular dementia. However, at baseline, family reports that patient is independent and able to play bridge. The patient has had worsening confusion over the last several days, she has been restless and agitated. She has been quite disoriented and the agitation has escalated to the point that she has required as needed Haldol. Mgoaqonq-eu-cra reports that the patient was given Xanax at her most recent facility and the wsudxgpr-qt-jyx believes this contributed to patient's altered mental status. Benzodiazepines have been discontinued. The patient's tramadol has been discontinued as well. Nursing reports no benefit from the Haldol and in fact believes that perhaps it has caused worsening of agitation. ALLERGIES: DILTIAZEM. MEDICATIONS: Reviewed and include Haldol intramuscular as needed. PAST MEDICAL HISTORY: History of stroke, hypertension, above the knee amputation, obstructive sleep apnea, atrial fibrillation, diabetes, congestive heart failure. FAMILY HISTORY: Noncontributory. SOCIAL HISTORY: Past history of smoking cigarettes. 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 MENTAL STATUS EXAMINATION: Lethargic, does not open her eyes. Speech unintelligible, appears restless, did not answer questions about suicidal or homicidal ideation. Poor attention and concentration. Poor short term memory, disoriented. Insight and judgment are currently poor. DIAGNOSIS: Delirium. [facility] [address] [place] [address] CONSULTATION Name: ARIADNA UGALDE Room #: 451-P [facility] IN M.R.#: [id number] Admission: 08/01/16 Attend Phys: Kevin Vasquez DO Discharge: Date of : 32 Report #: [id number] PLAN: I agree with avoiding benzodiazepines and limiting opioid medications, antipsychotics or treatment of choice in this case. Nursing denies any benefit from the Haldol and so we will discontinue that in favor of Geodon to be given as needed. For less severe agitation, we can try oral doses of Seroquel. I discussed the treatment plan with the patient's jznuwdun-yx-jta and answered questions about patient's diagnosis and prognosis. I will continue to follow along. Thank you for this consultation. Please contact me with any urgent questions or concerns. By: [id number] Magy Bowen MD /nt
--- NOTE | ~2016-08-01 | HC ---
[facility] [place] [address] CONSULTATION Name: ARIADNA UGALDE Room #: 451-P ADM IN M.R.#: [id number] Admission: 08/01/16 Attend Phys: Kevin Vasquez DO Discharge: Date of : 32 Report #: [id number] THIS REPORT FOR: //name// CC: Kevin Harpih PRIMARY PHYSICIAN: DO Pedro REASON FOR REFERRAL: Respiratory insufficiency. HISTORY OF PRESENT ILLNESS: The patient is an 85-year-old white female, who was brought to the Emergency Room with altered mental status. A pulmonary consultation was requested regarding dyspnea and hypoxia. The patient was just hospitalized at [facility] 2 weeks ago for an apparent falls sustaining a right hip fracture. Surgery was not performed, but rather medical treatment was recommended. The patient also has COPD, history of lung cancer. According to family, the patient was well 2 days ago when she was found to have altered mental status, not recognizing family members. She was felt to have dysarthria, continues agitated. For that reason, she was brought to the Emergency Room. Neurology has been consulted. CT head was ____. MRI has been ordered. Currently, she appears mildly dyspneic. She is resting without any obvious distress. She is followed longitudinally in our office by Dr. Delgado for sleep apnea. She has CPAP at home. PAST MEDICAL HISTORY: As mentioned above, COPD, adenocarcinoma of the lung, history of pleural effusion, undergone thoracentesis in the past, FIORDALIZA on CPAP, bioprosthetic aortic valve replacement, hypertension, status post permanent pacemaker placement, atrial fibrillation, gastroesophageal reflux disease, recent fall with right hip fracture, depression, diabetes mellitus type 2. ALLERGIES: CARDIZEM. HOME MEDICATIONS: Reviewed in the medication list. PAST SURGICAL HISTORY: Right knee replacement with subsequent staph infection involving the right knee, right pelvis fracture in 2010, bilateral cataract surgery, tonsillectomy, right AKA. HOME MEDICATIONS: Include DuoNeb q.i.d., Pravachol, alendronate, Zestril, iron supplements, Glumetza, Pradaxa, Effexor, Ultram, Spiriva, Norvasc, Detrol, Demadex, Protonix, Glucotrol, vitamin C and tramadol. [address] [address] CONSULTATION Name: ARIADNA UGALDE Room #: 451-P ADM IN M.R.#: [id number] Admission: 08/01/16 Attend Phys: Kevin Vasquez DO Discharge: Date of : 32 Report #: [id number] FAMILY HISTORY: Remarkable for heart disease in the father. Mother at the age of 99. SOCIAL HISTORY: The patient has smoked up to 2012 after having smoking more than 50 years. Prior to last admission, she had been living independently. She is . She has 3 children, who lives in town. REVIEW OF SYSTEMS: Deferred. PHYSICAL EXAMINATION: GENERAL: This patient is ____ provide an adequate history. VITAL SIGNS: Temperature is 98 degrees Fahrenheit, pulse is 77, respiratory rate is 21, blood pressure 140/50 mmHg, saturation is 90% on supplemental O2. HEENT: Normocephalic, atraumatic. NECK: Supple, without lymphadenopathy or thyromegaly. CHEST: Breath sounds are decreased bilaterally. Few scattered crackles in the bases up to poor effort. No wheezes. CARDIOVASCULAR: Normal S1, S2. No murmurs or gallop. There is no JVD. There is no carotid bruit. Pulses are 2+/4+ bilaterally. ABDOMEN: Soft, nontender, no organomegaly or masses felt. EXTREMITIES: No edema, cyanosis or clubbing. Is also remarkable for right AKA. LABORATORY DATA: CT head again was remarkable for atrophic changes, development of cortical and subcortical low density in the right posterior insula suggesting acute or subacute infarct. X-ray of the right hip shows comminuted acute proximal femoral intertrochanteric fracture with virus deformity. Electrolytes are normal. Liver function tests are unremarkable. WBC 10,000, hemoglobin is 9.6, platelets are normal, no evidence of bandemia. Albumin is 3.0. Chest x-ray shows increased in pleural effusion, right lower lobe atelectasis, possible infiltrates. IMPRESSION: 1. Acute mental status change, perhaps likely related to acute or subacute infarct by CT head. Neurology has been consulted along with MRI. 2. Dyspnea in this 85-year-old white female. She has a history of chronic obstructive pulmonary disease along with obstructive sleep apnea. Both of these entities are likely contributing. Chest x-ray also suggest slight increase in effusion along with possible infiltrates. Need to consider pneumonia. 3. Chronic obstructive pulmonary disease, severity unknown. 4. Obstructive sleep apnea on CPAP. 5. Lung cancer with a right pleural effusion. Cytology in the past has been negative. Chest x-ray shows slightly increased in the pleural effusion along [facility] [address] [place] [address] CONSULTATION Name: ARIADNA UGALDE Room #: 451-P ADM IN M.R.#: [id number] Admission: 08/01/16 Attend Phys: Kevin Vasquez DO Discharge: Date of : 32 Report #: [id number] with possible infiltrates. We need to consider pneumonia including possible aspiration. IMPRESSION: Bioprosthetic aortic valve replacement. RECOMMENDATIONS. We will continue bronchodilators, wean O2 saturation 90-92%. We will followup chest x-ray. If the pleural effusion traumatically increases, repeat thoracentesis will be considered. For now, would recommend broad-spectrum antibiotics to cover for possible aspiration pneumonia. We will await input from neurology regarding possible acute or subacute CVA. DVT and GI prophylaxis has been addressed. Thank you for the consultation. <ELECTRONICALLY SIGNED> By: Naren Lynch MD 08/04/16 1801 [id number] Nraen Lynch MD /nt
--- NOTE | ~2016-08-01 | EKG ---
[place] [address] [facility] [place] [address] ELECTROCARDIOGRAM REPORT Name: ARIADNA UGALDE Room #: 451-P ADM IN M.R.#: [id number] Admission: 08/01/16 Attend Phys: Kevin Vasquez DO Discharge: Date of : 32 Report #: [id number] THIS REPORT FOR: //name// [facility] ED Test Date: 2016-08-01 Test Time: 16:47:06 Pat Name: ARIADNA UGALDE Department: Room: 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 SINGH : 1930 Requested By: Dax Alfaro Order Number: [id number] MD: Anthony Leung Measurements Intervals [place] Rate: 79 P: 77 RI: 337 QRS: -43 QRSD: 162 T: 133 QT: 444 QTc: 510 Interpretive Statements Ventricular-paced complexes No further analysis attempted due to paced rhythm Compared to ECG 07/17/2016 10:02:54 No significant changes Electronically Signed On 08-03-2016 8:59:48 CDT by Anthony Leung [email or web address] <ELECTRONICALLY SIGNED> By: Anthony Leung MD, [facility] 08/03/16 0859 1647 164 Anthony Leung MD, [facility] /EPI
--- NOTE | ~2016-08-01 | HC ---
[facility] [place] [address] CONSULTATION Name: ARIADNA UGALDE Room #: 451-P [facility] IN M.R.#: [id number] Admission: 08/01/16 Attend Phys: Kevin Vasquez, DO Discharge: 08/11/16 Date of : 32 Report #: [id number] THIS REPORT FOR: //name// CC: Kevin Sellersu Sabih HISTORY OF PRESENT ILLNESS: This is an 85-year-old white female who recently had fallen out of bed, sustained a nondisplaced intertrochanteric fracture of the right femur. 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 Orthopedics saw her and with the intertrochanteric fracture, the plan was to do nonoperative treatment, nonweightbearing for 6-12 weeks. She was discharged from [facility] staying from 07/17 through 08/04/2016. She was at a nursing facility and unfortunately had more and more confusion and ended up being readmitted to [facility] on 08/01/2016. She was noted to have an encephalopathy with aspiration pneumonia, hypoxemic respiratory failure, paroxysmal atrial fibrillation. She actually required are 1:1 sister initially, which was stopped on August 05. MRI showed no acute changes, only some remote infarcts posterior right frontal and left parietal. She has had some hypokalemia with electrolyte abnormalities being corrected. We are seeing her in rehabilitation medicine consultation. PAST MEDICAL HISTORY: Includes prior bilateral total knee replacements with right becoming infected with subsequent right above knee amputation approximately 5 years ago, history of diabetes mellitus type 2, porcine heart valve, pacemaker placed, atrial fibrillation, hypertension, depression, COPD, obstructive sleep apnea. MEDICATIONS: Please see the full medication listing. HABITS: Former tobacco smoker. No history of alcohol use. REVIEW OF SYSTEMS: Unable to be obtained because of her mental status. SOCIAL HISTORY: She had been living in an assisted living facility at a wheelchair level. Most recently was at a [facility] facility, [facility]. PHYSICAL EXAMINATION: GENERAL: An 85-year-old white female lying in bed. She has nasal prong O2 in place, 2 liters. NEUROLOGIC: She is confused. She could not tell me the name of the place. She was pleasant, would attempt to follow some basic 1 step commands after a definite latency. EOMs appear to be full. Functional range of motion of both upper extremities with strength grade 3+/5. DTRs are trace to 1. EXTREMITIES: She has the right above knee amputation, which is well healed. Left lower extremity, no focal calf swelling. It was difficult to assess [address] [address] CONSULTATION Name: ARIADNA UGALDE Room #: 451-P [facility] IN M.R.#: [id number] Admission: 08/01/16 Attend Phys: Kevin Vasquez, Discharge: 08/11/16 Date of : 32 Report #: [id number] strength with her cognition. She is probably at least antigravity, but again was difficult to assess. Functionally, she has been max assist for attempted basic mobility. ASSESSMENT: An 85-year-old white female with the following problem list: 1. Prior right above knee amputation, complicated by a recent nondisplaced intertrochanteric right femur fracture being handled nonoperatively with nonweightbearing. 2. Encephalopathy. 3. Hypoxemic respiratory failure. 4. Aspiration pneumonia. 5. Paroxysmal atrial fibrillation. 6. Chronic obstructive pulmonary disease. 7. Hypertension. 8. History of esophageal ulcers. 9. Obstructive sleep apnea. PLAN: Therapies are continuing to work with her, although her tolerance is quite limited overall with her encephalopathy and her significant debilitation. At this point, she does not meet criteria for an acute in-hospital inpatient rehabilitation stay, but we will continue to follow. Note that plans are underway for her to return back to the penitentiary facility as she further medically stabilizes. I would agree with this approach. Thank you for asking us to assist in this patient's care. <ELECTRONICALLY SIGNED> By: Xiang Oviedo MD 08/12/16 1539 1606 1757 Xiang Oviedo MD /nt
[~2016-08-01 16:14] MED LIST changes: +ALBUTEROL2.5 MG/0.5 INH; +KEFLEX500 MG PO; +PROTONIX40 M1 PO; +SEROQUEL 25 MG25 M1 PO; +TAMIFLU75 MG PO
[2016-08-01 16:22] VITALS: BP 126/94
[2016-08-01 16:58] LABS: HEMATOCRIT 28.6 % (37.0-47.0); HEMOGLOBIN 9.3 gm/dL (12.0-15.0); MANUAL DIFF YES; MCH 30.3 pg (26.0-34.0); MCHC 32.6 g/dL (28.0-37.0); PLATELET COUNT 243 thou/uL (150-400); RBC 3.07 mil/uL (4.20-5.00); RDW 16.1 % (10.5-14.5); WBC 8.6 thou/uL (4.0-11.0)
[2016-08-01] MEDS ORDERED: GLIPIZIDE 10 MG10 MG PO (17:09)
[2016-08-01] MEDS ORDERED: VITAMINC500 PO (17:13)
[2016-08-01] MEDS ORDERED: TRAMADOL HCL E100 MG PO (17:17)
[2016-08-01 17:28] LABS: CALCIUM 9.7 mg/dL (8.5-10.1); POTASSIUM 4.4 mmol/L (3.5-5.1)
[2016-08-01 17:35] LABS: TOTAL BILIRUBIN 0.5 mg/dL (<0.1-1.0); TOTAL PROTEIN 6.5 g/dL (6.4-8.2); TROPONIN-I 0.04 ng/mL (<0.04-0.07)
[2016-08-01 17:42] LABS: ABSOLUTE NEUTROPHILS 8.2 thou/uL (1.4-8.2); ANISOCYTOSIS 1+; TOTAL CELL COUNT 100
[2016-08-01 18:15] LABS: URINE BILIRUBIN NEGATIVE (Negative); URINE BLOOD NEGATIVE (Negative); URINE COLOR YELLOW; URINE GLUCOSE-RANDOM* NEGATIVE (Negative); URINE KETONES NEGATIVE (Negative); URINE NITRITE NEGATIVE (Negative); URINE PROTEIN (DIPSTICK) NEGATIVE (Negative); URINE UROBILINOGEN 0.2 E.U./dl (0.2-1.0)
[2016-08-01 19:06] VITALS: BP 148/55
[2016-08-01] MEDS ORDERED: NEURONTIN 300M300 M2 PO (19:13)
[2016-08-01 19:32] VITALS: BP 140/48
[2016-08-01 23:24] VITALS: BP 114/65
[2016-08-02 03:50] VITALS: BP 143/52
[2016-08-02 05:38] LABS: HEMATOCRIT 30.2 % (37.0-47.0); HEMOGLOBIN 9.6 gm/dL (12.0-15.0); MCH 29.8 pg (26.0-34.0); MCHC 31.9 g/dL (28.0-37.0); MCV 93.4 fL (80.0-100.0); PLATELET COUNT 258 thou/uL (150-400); RBC 3.24 mil/uL (4.20-5.00); RDW 16.2 % (10.5-14.5); WBC 10.1 thou/uL (4.0-11.0)
[2016-08-02 05:46] LABS: MANUAL DIFF YES
[2016-08-02 05:47] LABS: CALCIUM 9.8 mg/dL (8.5-10.1); CREATININE 0.9 mg/dL (0.6-1.3); POTASSIUM 4.8 mmol/L (3.5-5.1)
[2016-08-02 05:55] LABS: TROPONIN-I < 0.04 ng/mL (<0.04-0.07)
[2016-08-02 07:13] LABS: TOTAL CELL COUNT 100
[2016-08-02 07:14] LABS: ABSOLUTE NEUTROPHILS 8.9 thou/uL (1.4-8.2); ANISOCYTOSIS 1+
[2016-08-02 08:00] VITALS: BP 140/49
[2016-08-02 12:00] VITALS: BP 148/56; BP 148/86
[2016-08-02 13:12] LABS: CHOLESTEROL 130 mg/dL (<200); HDL CHOLESTEROL 44 mg/dL (>40); LDL CHOLESTEROL 73 mg/dL (<100); TRIGLYCERIDE 66 mg/dL (<150); VLDL 13 mg/dL (<40)
[2016-08-02 16:00] VITALS: BP 126/50
[2016-08-02 20:10] VITALS: BP 109/74
[2016-08-02 23:47] VITALS: BP 153/42
[2016-08-03 04:07] VITALS: BP 135/56
[2016-08-03 05:32] LABS: HEMATOCRIT 31.2 % (37.0-47.0); MCH 29.9 pg (26.0-34.0); MCHC 32.1 g/dL (28.0-37.0); MCV 93.4 fL (80.0-100.0); PLATELET COUNT 272 thou/uL (150-400); RBC 3.34 mil/uL (4.20-5.00); RDW 16.5 % (10.5-14.5); WBC 11.6 thou/uL (4.0-11.0)
[2016-08-03 05:45] LABS: CALCIUM 9.5 mg/dL (8.5-10.1); CREATININE 1.3 mg/dL (0.6-1.3); POTASSIUM 4.8 mmol/L (3.5-5.1)
[2016-08-03 05:48] LABS: MANUAL DIFF YES
[2016-08-03 07:09] LABS: ABSOLUTE NEUTROPHILS 10.9 thou/uL (1.4-8.2); METAMYELOCYTES 1 %; NUCLEATED RBCS 1 /100WBC; OVALOCYTES 1+; POLYCHROMASIA OCCASIONAL; TOTAL CELL COUNT 100
[2016-08-03 07:10] LABS: ANISOCYTOSIS 1+
[2016-08-03 08:04] VITALS: BP 145/68
[2016-08-03 10:36] VITALS: BP 145/68
[2016-08-03 11:34] VITALS: BP 136/51
[2016-08-03 13:43] LABS: ABG SAMPLE TYPE ARTERIAL; BE(vivo) -2.6 mmol/L (-2 to +3); O2(CT) 14.2 mL/dL (15.0-23.0); O2Hb 93.4 % (92.0-98.0); PCO2 32.4 mmHg (35.0-45.0); PO2 72.2 mmHg (80.0-100.0); STICK SITE R.RADIAL; sO2 95.1 % (92.0-98.0)
[2016-08-03 17:09] VITALS: BP 124/53
[2016-08-03 19:16] VITALS: BP 133/64
[2016-08-04 01:09] LABS: GLYCOHEMOGLOBIN (HGB A1C) 6.1 % (4.8-5.6)
[2016-08-04 04:00] VITALS: BP 153/59
[2016-08-04 05:18] LABS: HEMATOCRIT 30.8 % (37.0-47.0); HEMOGLOBIN 9.9 gm/dL (12.0-15.0); MCH 29.7 pg (26.0-34.0); MCV 92.6 fL (80.0-100.0); PLATELET COUNT 261 thou/uL (150-400); RBC 3.33 mil/uL (4.20-5.00); RDW 16.3 % (10.5-14.5); WBC 10.3 thou/uL (4.0-11.0)
[2016-08-04 05:28] LABS: MANUAL DIFF YES
[2016-08-04 05:47] LABS: CALCIUM 8.8 mg/dL (8.5-10.1); CREATININE 1.3 mg/dL (0.6-1.3); POTASSIUM 4.3 mmol/L (3.5-5.1)
[2016-08-04 08:14] VITALS: BP 143/56
[2016-08-04 08:21] LABS: ANISOCYTOSIS 1+; OVALOCYTES 1+; POLYCHROMASIA OCCASIONAL; TOTAL CELL COUNT 100
[2016-08-04 12:00] VITALS: BP 123/42
[2016-08-04 17:51] VITALS: BP 141/88
[2016-08-04 17:55] LABS: URINE BILIRUBIN NEGATIVE (Negative); URINE BLOOD 3+ (Negative); URINE COLOR RED; URINE GLUCOSE-RANDOM* NEGATIVE (Negative); URINE KETONES NEGATIVE (Negative); URINE NITRITE NEGATIVE (Negative); URINE PROTEIN (DIPSTICK) 2+ (Negative); URINE UROBILINOGEN 0.2 E.U./dl (0.2-1.0)
[2016-08-04 17:59] LABS: BACTERIA 1-9 Few /HPF (None Seen); CASTS None Seen /LPF (None Seen); CRYSTALS None Seen /LPF (None Seen); SQUAMOUS 4-10 Moderate /LPF (0-3); URINE RBC >20 Many /HPF (0-2); URINE WBC None Seen /HPF (0-5)
[2016-08-04 19:14] VITALS: BP 157/58
[2016-08-05 03:00] VITALS: BP 167/70
[2016-08-05 05:38] LABS: HEMATOCRIT 34.2 % (37.0-47.0); HEMOGLOBIN 10.8 gm/dL (12.0-15.0); MCH 29.5 pg (26.0-34.0); MCHC 31.6 g/dL (28.0-37.0); MCV 93.5 fL (80.0-100.0); PLATELET COUNT 279 thou/uL (150-400); RBC 3.66 mil/uL (4.20-5.00); RDW 16.8 % (10.5-14.5); WBC 10.4 thou/uL (4.0-11.0)
[2016-08-05 05:49] LABS: MANUAL DIFF YES
[2016-08-05 05:58] LABS: CALCIUM 9.1 mg/dL (8.5-10.1); CREATININE 1.3 mg/dL (0.6-1.3); POTASSIUM 4.2 mmol/L (3.5-5.1)
[2016-08-05 06:51] LABS: ABSOLUTE NEUTROPHILS 8.9 thou/uL (1.4-8.2); ANISOCYTOSIS 1+; TOTAL CELL COUNT 100
[2016-08-05 07:47] VITALS: BP 152/61
[2016-08-05 11:18] VITALS: BP 166/62
[2016-08-05 15:24] VITALS: BP 168/64
[2016-08-05 19:30] VITALS: BP 165/60
[2016-08-05 20:45] LABS: HEMATOCRIT 34.8 % (37.0-47.0); HEMOGLOBIN 10.9 gm/dL (12.0-15.0); MCH 29.7 pg (26.0-34.0); MCHC 31.5 g/dL (28.0-37.0); MCV 94.2 fL (80.0-100.0); PLATELET COUNT 250 thou/uL (150-400); RBC 3.69 mil/uL (4.20-5.00); RDW 16.8 % (10.5-14.5); WBC 8.2 thou/uL (4.0-11.0)
[2016-08-05 20:46] LABS: MANUAL DIFF YES
[2016-08-05 20:59] LABS: CALCIUM 9.3 mg/dL (8.5-10.1); CREATININE 1.4 mg/dL (0.6-1.3); POTASSIUM 3.4 mmol/L (3.5-5.1)
[2016-08-05 21:06] LABS: ABSOLUTE NEUTROPHILS 6.8 thou/uL (1.4-8.2); ANISOCYTOSIS 2+; NUCLEATED RBCS 1 /100WBC; TOTAL CELL COUNT 100
[2016-08-05 21:07] LABS: POIKILOCYTOSIS 1+; POLYCHROMASIA SLIGHT
[2016-08-05 22:32] LABS: ABG SAMPLE TYPE ARTERIAL; BE(vivo) 5.7 mmol/L (-2 to +3); HCO3 30.5 mmol/L (22.0-26.0); LACTATE 1.91 mmol/L (0.5-2.0); O2(CT) 16.2 mL/dL (15.0-23.0); O2Hb 93.3 % (92.0-98.0); PCO2 45.4 mmHg (35.0-45.0); PO2 71.8 mmHg (80.0-100.0); STICK SITE R.RADIAL; pH 7.445 (7.360-7.450); sO2 94.9 % (92.0-98.0); tCO2 31.9 mmol/L (24.0-30.0)
[2016-08-06 04:06] VITALS: BP 139/48
[2016-08-06 04:12] LABS: HEMATOCRIT 33.5 % (37.0-47.0); HEMOGLOBIN 10.9 gm/dL (12.0-15.0); MCH 29.7 pg (26.0-34.0); MCHC 32.6 g/dL (28.0-37.0); MCV 91.3 fL (80.0-100.0); PLATELET COUNT 240 thou/uL (150-400); RBC 3.67 mil/uL (4.20-5.00); RDW 16.4 % (10.5-14.5); WBC 8.2 thou/uL (4.0-11.0)
[2016-08-06 04:22] LABS: ALBUMIN 2.9 g/dL (3.4-5.0); CALCIUM 9.2 mg/dL (8.5-10.1); CREATININE 1.3 mg/dL (0.6-1.3); POTASSIUM 3.3 mmol/L (3.5-5.1); TOTAL BILIRUBIN 0.8 mg/dL (<0.1-1.0); TOTAL PROTEIN 6.4 g/dL (6.4-8.2)
[2016-08-06 04:23] LABS: MANUAL DIFF YES
[2016-08-06 04:52] LABS: ABSOLUTE NEUTROPHILS 7.1 thou/uL (1.4-8.2); ANISOCYTOSIS 1+; POIKILOCYTOSIS SLIGHT; POLYCHROMASIA OCCASIONAL; TOTAL CELL COUNT 100
[2016-08-06 05:03] LABS: ABG SAMPLE TYPE ARTERIAL; BE(vivo) 4.6 mmol/L (-2 to +3); LACTATE 1.38 mmol/L (0.5-2.0); O2(CT) 15.2 mL/dL (15.0-23.0); O2Hb 93.1 % (92.0-98.0); PCO2 42.2 mmHg (35.0-45.0); STICK SITE R.RADIAL; pH 7.455 (7.360-7.450); sO2 95.2 % (92.0-98.0); tCO2 30.3 mmol/L (24.0-30.0)
[2016-08-06 05:04] LABS: VDS CPAP cc
[2016-08-06 07:15] VITALS: BP 133/43
[2016-08-06 11:55] VITALS: BP 128/41
[2016-08-06 14:13] LABS: URINE BILIRUBIN NEGATIVE (Negative); URINE BLOOD TRACE (Negative); URINE COLOR YELLOW; URINE GLUCOSE-RANDOM* NEGATIVE (Negative); URINE KETONES NEGATIVE (Negative); URINE NITRITE NEGATIVE (Negative); URINE PROTEIN (DIPSTICK) NEGATIVE (Negative); URINE UROBILINOGEN 0.2 E.U./dl (0.2-1.0)
[2016-08-06 18:58] VITALS: BP 125/50
[2016-08-07 06:17] LABS: CALCIUM 9.3 mg/dL (8.5-10.1); CREATININE 1.2 mg/dL (0.6-1.3); PHOSPHORUS 3.5 mg/dL (2.5-4.9); POTASSIUM 3.5 mmol/L (3.5-5.1)
[2016-08-07 08:11] VITALS: BP 127/46
[2016-08-07 12:38] VITALS: BP 114/40
[2016-08-07 16:46] VITALS: BP 130/40
[2016-08-07 20:00] VITALS: BP 113/38
[2016-08-08 04:00] VITALS: BP 128/48
[2016-08-08 05:26] LABS: ALBUMIN 2.8 g/dL (3.4-5.0); CALCIUM 8.6 mg/dL (8.5-10.1); CREATININE 1.1 mg/dL (0.6-1.3); PHOSPHORUS 2.9 mg/dL (2.5-4.9); POTASSIUM 3.1 mmol/L (3.5-5.1)
[2016-08-08 07:36] VITALS: BP 117/59
[2016-08-08 11:41] VITALS: BP 110/39
[2016-08-08 15:32] VITALS: BP 120/62
[2016-08-08 19:02] VITALS: BP 1239/47
[2016-08-09 04:11] VITALS: BP 134/59
[2016-08-09 04:12] LABS: GLYCOHEMOGLOBIN (HGB A1C) 6.6 % (4.8-5.6)
[2016-08-09 05:34] LABS: HEMATOCRIT 33.8 % (37.0-47.0); HEMOGLOBIN 10.8 gm/dL (12.0-15.0); MCH 29.3 pg (26.0-34.0); MCV 91.4 fL (80.0-100.0); PLATELET COUNT 159 thou/uL (150-400); RBC 3.69 mil/uL (4.20-5.00); RDW 16.1 % (10.5-14.5); WBC 9.6 thou/uL (4.0-11.0)
[2016-08-09 05:58] LABS: MANUAL DIFF YES
[2016-08-09 06:04] LABS: POTASSIUM 3.7 mmol/L (3.5-5.1)
[2016-08-09 06:57] LABS: ABSOLUTE NEUTROPHILS 9.1 thou/uL (1.4-8.2); ANISOCYTOSIS 1+; TOTAL CELL COUNT 100
[2016-08-09 08:26] VITALS: BP 129/57
[2016-08-09] MEDS ORDERED: METOPROLOL SUCC50 MG PO (11:54)
[2016-08-09] MEDS ORDERED: AUGMENTIN 875875 MG PO (11:55)
[2016-08-09] MEDS ORDERED: DELTASONE20 MG PO (11:56)
[2016-08-09] MEDS ORDERED: ASPIR 8181 MG PO (12:29)
[2016-08-09 12:39] VITALS: BP 134/44
[2016-08-09 16:00] VITALS: BP 104/51
[2016-08-09 19:18] VITALS: BP 97/50
[2016-08-10 08:28] VITALS: BP 129/49
[2016-08-10 11:36] VITALS: BP 116/89
[2016-08-10 15:34] VITALS: BP 137/43
[2016-08-10 20:00] VITALS: BP 143/71
[2016-08-11 04:00] VITALS: BP 148/60
[2016-08-11 06:13] LABS: HEMATOCRIT 34.1 % (37.0-47.0); HEMOGLOBIN 10.9 gm/dL (12.0-15.0); MCH 28.9 pg (26.0-34.0); MCHC 31.9 g/dL (28.0-37.0); MCV 90.7 fL (80.0-100.0); PLATELET COUNT 153 thou/uL (150-400); RBC 3.76 mil/uL (4.20-5.00); RDW 16.1 % (10.5-14.5)
[2016-08-11 06:17] LABS: MANUAL DIFF YES
[2016-08-11 06:30] LABS: ALBUMIN 3.1 g/dL (3.4-5.0); CALCIUM 9.8 mg/dL (8.5-10.1); CREATININE 0.8 mg/dL (0.6-1.3); MAGNESIUM 2.4 mg/dL (1.8-2.4); POTASSIUM 4.5 mmol/L (3.5-5.1); TOTAL BILIRUBIN 0.8 mg/dL (<0.1-1.0); TOTAL PROTEIN 6.1 g/dL (6.4-8.2)
[2016-08-11 07:38] VITALS: BP 144/50
[2016-08-11 08:04] LABS: ABSOLUTE NEUTROPHILS 8.1 thou/uL (1.4-8.2); ATYPICAL LYMPHS 1 %; TOTAL CELL COUNT 100
[2016-08-11 08:05] LABS: ANISOCYTOSIS 1+; OVALOCYTES 2+; SCHISTOCYTES OCCASIONAL
[2016-08-11 12:00] VITALS: BP 134/52
[2016-08-11] MEDS ORDERED: DELTASONE20 MG PO (12:24)
== END 2016-08-11 16:47 | DRG 177 ==
LOC: ER 16:14 → EROBS 18:22 → 4W 18:22 → EROBS 18:41 → 4W 19:08
PROVIDERS: Family Medicine; Hospitalist; Internal Medicine; Internal Medicine Geriatric Medicine; Internal Medicine Pulmonary Disease; Nurse Practitioner; Nurse Practitioner Acute Care; Physician Assistant; Psychiatry & Neurology Neurology
DX: J69.0 Pneumonitis due to inhalation of food and vomit (principal); I63.9 Cerebral infarction, unspecified; G93.40 Encephalopathy, unspecified; J96.91 Respiratory failure, unspecified with hypoxia; S72.009A Fracture of unspecified part of neck of unspecified femur, initial encounter for closed fracture; D68.59 Other primary thrombophilia; J90 Pleural effusion, not elsewhere classified; C34.90 Malignant neoplasm of unspecified part of unspecified bronchus or lung; I50.32 Chronic diastolic (congestive) heart failure; E87.0 Hyperosmolality and hypernatremia; J98.11 Atelectasis; I47.2 Ventricular tachycardia; J44.1 Chronic obstructive pulmonary disease with (acute) exacerbation; F32.9 Major depressive disorder, single episode, unspecified; Z96.89 Presence of other specified functional implants; Z96.651 Presence of right artificial knee joint; D63.8 Anemia in other chronic diseases classified elsewhere; I48.2 Chronic atrial fibrillation; G47.33 Obstructive sleep apnea (adult) (pediatric); K21.9 Gastro-esophageal reflux disease without esophagitis; I34.0 Nonrheumatic mitral (valve) insufficiency; E87.5 Hyperkalemia; R41.0 Disorientation, unspecified; I11.0 Hypertensive heart disease with heart failure; E11.40 Type 2 diabetes mellitus with diabetic neuropathy, unspecified; E86.0 Dehydration; Z79.899 Other long term (current) drug therapy; Z98.42 Cataract extraction status, left eye; Z98.41 Cataract extraction status, right eye; Z88.8 Allergy status to other drugs, medicaments and biological substances; Z95.2 Presence of prosthetic heart valve; Z89.619 Acquired absence of unspecified leg above knee; Z88.6 Allergy status to analgesic agent; Z79.82 Long term (current) use of aspirin; Z23 Encounter for immunization; W18.39XA Other fall on same level, initial encounter; Y93.89 Activity, other specified; Y92.89 Other specified places as the place of occurrence of the external cause; Y99.8 Other external cause status
CPT/HCPCS: 10045